=== PATIENT | female | born 1990 | race Caucasian/White ===

== ENCOUNTER → 2023-02-12 | Outpatient (REF) | payer OTHER | LOC: M PLALAB 13:51 | PROVIDERS: ATTEND Nurse Practitioner Family | DX: Z12.4 Encounter for screening for malignant neoplasm of cervix (principal) | CPT/HCPCS: 87624; G0123 ==

== ENCOUNTER → 2023-04-20 | Outpatient (REF) | payer OTHER | LOC: M LAB REF 17:03 | PROVIDERS: ATTEND Pediatrics | DX: E06.3 Autoimmune thyroiditis (principal) ==

== ENCOUNTER → 2023-05-19 | Outpatient (REF) | payer OTHER, BC | LOC: M SFHCWAGY 09:46 | PROVIDERS: ATTEND Nurse Practitioner Family | DX: R30.0 Dysuria (principal); B96.20 Unspecified Escherichia coli [E. coli] as the cause of diseases classified elsewhere ==

== ENCOUNTER → 2023-07-02 | Outpatient (REF) | payer OTHER, BC ==
[2023-07-02 19:02] LABS: HEMOGLOBIN A1c 4.6 % (4.0-6.0)
== END ==
LOC: M LAB REF 16:21
PROVIDERS: ATTEND Pediatrics
DX: E06.3 Autoimmune thyroiditis (principal); R63.5 Abnormal weight gain

== ENCOUNTER → 2023-07-14 | Outpatient (CLI) | payer BC ==
[2023-07-14 17:45] LABS: HEMATOCRIT 37.3 % (36.0-47.0); HEMOGLOBIN 12.7 g/dl (12.0-15.5); MEAN CORPUSCULAR HEMOGLOBIN 30.6 pg (27.0-33.0); MEAN CORPUSCULAR VOLUME 89.9 fl (80.0-96.0); PLATELET COUNT, AUTOMATED 227 10^3/uL (150-450); RED BLOOD COUNT 4.15 10^6/uL (4.00-5.40); WHITE BLOOD COUNT 6.2 10^3/uL (4.0-10.0)
[2023-07-14 18:39] LABS: HIV 1&2 SCREEN NEGATIVE (NEGATIVE)
[2023-07-14 18:47] LABS: HEPATITIS C VIRUS ABY INDEX < 0.02 INDEX (<0.8)
[2023-07-14 19:50] LABS: GC DNA AMPLIFICATION NEGATIVE (NEGATIVE)
== END ==
LOC: M PLALAB 15:56
PROVIDERS: ATTEND Obstetrics & Gynecology
DX: Z34.91 Encounter for supervision of normal pregnancy, unspecified, first trimester (principal)

== ENCOUNTER → 2023-09-02 | Outpatient (REF) | payer BC | LOC: M LAB REF 16:45 | PROVIDERS: ATTEND Pediatrics | DX: E06.3 Autoimmune thyroiditis (principal) ==

== ENCOUNTER → 2023-09-10 | Outpatient (CLI) | payer BC | LOC: M WHC 13:56 → MERGE 14:30 | PROVIDERS: ATTEND Advanced Practice Midwife | DX: Z34.02 Encounter for supervision of normal first pregnancy, second trimester (principal) ==

== ENCOUNTER → 2023-10-18 | Outpatient (REF) | payer BC | LOC: M LAB REF 16:13 | PROVIDERS: ATTEND Pediatrics | DX: E06.3 Autoimmune thyroiditis (principal) ==

== ENCOUNTER → 2023-10-18 | Outpatient (CLI) | payer BC ==
[2023-10-18 15:54] LABS: HEMATOCRIT 36.1 % (36.0-47.0); HEMOGLOBIN 12.1 g/dl (12.0-15.5); MEAN CORPUSCULAR HEMOGLOBIN 31.2 pg (27.0-33.0); MEAN CORPUSCULAR HGB CONC 33.5 g/dl (32.0-36.5); PLATELET COUNT, AUTOMATED 208 10^3/uL (150-450); RED BLOOD COUNT 3.88 10^6/uL (4.00-5.40); WHITE BLOOD COUNT 10.6 10^3/uL (4.0-10.0)
[2023-10-18 15:56] LABS: GLUCOSE CHALLENGE TEST 1 HOUR 123 MG/DL (LESS THAN 140)
[2023-10-18 16:21] LABS: HIV 1&2 SCREEN NEGATIVE (NEGATIVE)
[2023-10-18 16:29] LABS: HEPATITIS C VIRUS ABY INDEX < 0.02 INDEX (<0.8)
[2023-10-18 18:06] LABS: GC DNA AMPLIFICATION NEGATIVE (NEGATIVE)
== END ==
LOC: M PLALAB 12:16
PROVIDERS: ATTEND Obstetrics & Gynecology
DX: Z34.80 Encounter for supervision of other normal pregnancy, unspecified trimester (principal)

== ENCOUNTER → 2023-11-02 | Outpatient (CLI) | payer BC | LOC: M WHC 08:30 | PROVIDERS: ATTEND Obstetrics & Gynecology | DX: O44.42 Low lying placenta NOS or without hemorrhage, second trimester (principal); Z3A.26 26 weeks gestation of pregnancy ==

== ENCOUNTER → 2023-12-02 | Outpatient (CLI) | payer BC | LOC: M WHC 11:30 | PROVIDERS: ATTEND Obstetrics & Gynecology | DX: O28.3 Abnormal ultrasonic finding on antenatal screening of mother (principal); Z3A.30 30 weeks gestation of pregnancy ==

== ENCOUNTER → 2023-12-28 | Outpatient (REF) | payer BC | LOC: M LAB REF 18:03 | PROVIDERS: ATTEND Pediatrics | DX: E06.3 Autoimmune thyroiditis (principal) ==

== ENCOUNTER → 2024-01-06 | Outpatient (REF) | payer BC | LOC: M SFHCWAGY 12:21 | PROVIDERS: ATTEND Obstetrics & Gynecology | DX: Z34.93 Encounter for supervision of normal pregnancy, unspecified, third trimester (principal) ==

== ENCOUNTER → 2024-01-17 | Outpatient (CLI) | payer BC | LOC: M WHC 07:06 | PROVIDERS: ATTEND Obstetrics & Gynecology | DX: O28.3 Abnormal ultrasonic finding on antenatal screening of mother (principal); Z3A.37 37 weeks gestation of pregnancy ==

== ENCOUNTER → 2024-03-01 | Outpatient (REF) | payer BC ==
[~2024-03-01] MED LIST: ACET-683 PO; ACET-897 PO; BUTACAP78 PO; COLA100C5 PO; IBUP-1022 PO; LEVO137T2 PO; MAGN400C2 PO; PNV1TABL16 PO; RIBO400T PO; TUMS500C PO; WELLTAB40 PO
== END ==
LOC: M LAB REF 16:33
PROVIDERS: ATTEND Pediatrics
DX: E06.3 Autoimmune thyroiditis (principal)

== ENCOUNTER → 2024-03-31 | Outpatient (CLI) | payer BC | LOC: M WHC 13:19 | PROVIDERS: ATTEND Obstetrics & Gynecology | DX: N36.8 Other specified disorders of urethra (principal) ==

== ENCOUNTER → 2024-07-07 | Outpatient (REF) | payer BC | LOC: M LAB REF 17:02 | PROVIDERS: ATTEND Pediatrics | DX: E06.3 Autoimmune thyroiditis (principal) ==

== ENCOUNTER → 2024-07-18 | Outpatient (REF) | payer BC ==
[2024-07-20 15:22] LABS: HPV APTIMA Not Detected (Not Detected)
== END ==
LOC: M SFHCWAGY 15:39
PROVIDERS: ATTEND Obstetrics & Gynecology
DX: Z12.4 Encounter for screening for malignant neoplasm of cervix (principal)
CPT/HCPCS: 87624; G0123

== ENCOUNTER → 2024-10-05 | Outpatient (CLI) | payer BC ==
[2024-10-05 13:47] LABS: PLATELET COUNT, AUTOMATED 216 10^3/uL (150-450)
[2024-10-05 14:00] LABS: FREE T4 1.41 NG/DL (0.89-1.76)
[2024-10-05 14:31] LABS: HIV 1&2 SCREEN NEGATIVE (NEGATIVE)
[2024-10-05 14:39] LABS: HEPATITIS C VIRUS ABY INDEX < 0.02 INDEX (<0.8)
[2024-10-05 14:46] LABS: Trichomonas vaginalis (AMP) NOT DETECTED (NEGATIVE)
[2024-10-05 15:10] LABS: GC DNA AMPLIFICATION NEGATIVE (NEGATIVE)
== END ==
LOC: M PLALAB 10:29
PROVIDERS: ATTEND Advanced Practice Midwife
DX: Z34.81 Encounter for supervision of other normal pregnancy, first trimester (principal)

== ENCOUNTER → 2024-10-18 | Outpatient (CLI) | payer BC | LOC: M PLALAB 13:00 | PROVIDERS: ATTEND Advanced Practice Midwife | DX: Z34.81 Encounter for supervision of other normal pregnancy, first trimester (principal) ==

== ENCOUNTER → 2024-11-10 | Outpatient (REF) | payer BC ==
[~2024-11-10] MED LIST changes: -IBUP-1022 PO; +IBUP600T42 PO
== END ==
LOC: M LAB REF 16:18
PROVIDERS: ATTEND Pediatrics
DX: E06.3 Autoimmune thyroiditis (principal)

== ENCOUNTER → 2024-12-20 | Outpatient (CLI) | payer BC | LOC: M WHC 11:32 | PROVIDERS: ATTEND Obstetrics & Gynecology | DX: Z34.82 Encounter for supervision of other normal pregnancy, second trimester (principal); Z3A.19 19 weeks gestation of pregnancy ==

== ENCOUNTER → 2025-01-09 | Outpatient (REF) | payer BC ==
[2025-01-09 17:56] LABS: BASO # 0.1 10^3/uL (0.0-0.2); BASO % 0.4 % (0.0-1.0); EOS # 0.3 10^3/uL (0.0-0.5); EOS % 2.2 % (0.0-3.0); LYMPH # 2.2 10^3/uL (1.5-5.0); LYMPH % 19.8 % (24.0-44.0); MONO # 0.7 10^3/uL (0.0-0.8); MONO % 6.1 % (2.0-8.0); NEUTROPHILS # 8.0 10^3/uL (1.5-8.5); NEUTROPHILS % 71.1 % (36.0-66.0); PLATELET COUNT, AUTOMATED 217 10^3/uL (150-450)
[2025-01-09 18:25] LABS: C REACTIVE PROTEIN QUANTITATIV 0.91 MG/DL (<1.0); CPK CREATINE PHOSPHOKINASE 44.0 U/L (34-145)
== END ==
LOC: M LAB REF 16:44
PROVIDERS: ATTEND Pediatrics
DX: E06.3 Autoimmune thyroiditis (principal); M79.10 Myalgia, unspecified site

== ENCOUNTER 2025-01-11 06:59 | Outpatient (RCR) | payer BC | END 2025-01-12 | LOC: M PT 06:59 | PROVIDERS: ATTEND Obstetrics & Gynecology | DX: O26.899 Other specified pregnancy related conditions, unspecified trimester (principal); Z3A.00 Weeks of gestation of pregnancy not specified ==

== ENCOUNTER 2025-01-16 12:38 | Outpatient (RCR) | payer BC | END 2025-02-11 | LOC: M PT 12:38 | PROVIDERS: ATTEND Obstetrics & Gynecology | DX: O26.899 Other specified pregnancy related conditions, unspecified trimester (principal); Z3A.00 Weeks of gestation of pregnancy not specified ==

== ENCOUNTER → 2025-01-19 | Outpatient (CLI) | payer BC | LOC: M WHC 07:13 | PROVIDERS: ATTEND Student in an Organized Health Care Education/Training Program | DX: Z34.82 Encounter for supervision of other normal pregnancy, second trimester (principal); Z3A.23 23 weeks gestation of pregnancy ==

== ENCOUNTER → 2025-02-14 | Outpatient (CLI) | payer BC ==
[2025-02-14 15:46] LABS: PLATELET COUNT, AUTOMATED 207 10^3/uL (150-450)
[2025-02-14 16:18] LABS: GLUCOSE CHALLENGE TEST 1 HOUR 94 MG/DL (LESS THAN 140)
[2025-02-14 16:54] LABS: HIV 1&2 SCREEN NEGATIVE (NEGATIVE)
[2025-02-14 17:01] LABS: Trichomonas vaginalis (AMP) NOT DETECTED (NEGATIVE)
[2025-02-14 17:02] LABS: HEPATITIS C VIRUS ABY INDEX < 0.02 INDEX (<0.8)
[2025-02-14 17:24] LABS: GC DNA AMPLIFICATION NEGATIVE (NEGATIVE)
== END ==
LOC: M PLALAB 13:06
PROVIDERS: ATTEND Obstetrics & Gynecology
DX: O41.8X20 Other specified disorders of amniotic fluid and membranes, second trimester, not applicable or unspecified (principal)

== ENCOUNTER 2025-03-05 09:09 | Outpatient (RCR) | payer BC | END 2025-03-14 | LOC: M PT 09:09 | PROVIDERS: ATTEND Obstetrics & Gynecology | DX: O26.899 Other specified pregnancy related conditions, unspecified trimester (principal) ==